=== PATIENT | female | born 1935 | race Caucasian/White ===

== ENCOUNTER 2018-01-17 15:05 | Inpatient (IN) | payer MEDICARE ==
[~2018-01-17] VITALS: Ht 167.6 cm; Wt 52.6 kg
--- NOTE | 2018-01-17 15:08 | NUR ---
BIB FAMILY C/O DIZZINESS "ROOM IS SPINNING", DENIES CP. PATIENT AT BEDSIDE WITH FAMILY. VSS. PER PATIENT, SHE FEELS BETTER NOW, "NOT DIZZY ANYMORE". KEPT PATIENT SAFE AND COMFORTABLE. WAITING MD FOR JC
[2018-01-17] MEDS ORDERED: IV NS 0.9% 1,000 ML BAG IV ONE (15:30)
[2018-01-17] MEDS: ONDANSETRON HCL/PF 4 MG/2 ML VIAL IVP ONE ×2 (15:30→16:27)
--- NOTE | 2018-01-17 15:45 | NUR ---
LEFT AC GAUGE 20, INTACT AND PATENT
[2018-01-17 15:49] LABS: BASOPHILS # (AUTO) 0.1 /CMM (0.0-0.2); BASOPHILS % (AUTO) 1.5 % (0.0-2.0); EOSINOPHILS % (AUTO) 0.1 % (0.0-6.0); HEMATOCRIT 40 % (33-45); HEMOGLOBIN 13.2 g/dL (11.5-14.8); LYMPHOCYTES # (AUTO) 0.5 /CMM (0.8-4.8); LYMPHOCYTES % (AUTO) 9.1 % (20.0-44.0); MEAN CORPUSCULAR HEMOGLOBIN 28 PG (26.0-33.0); MEAN CORPUSCULAR HGB CONC 33 g/dl (31.0-36.0); MEAN CORPUSCULAR VOLUME 87 fL (82-100); MONOCYTES # (AUTO) 0.1 /CMM (0.1-1.30); MONOCYTES % (AUTO) 1.9 % (2.0-12.0); NEUTROPHILS % (AUTO) 87.4 % (43.0-81.0); PLATELET COUNT (AUTO) 233 /CMM (150-450); RDW COEFFICIENT OF VARIATION 13.4 (11.5-15.0); RED BLOOD CELL COUNT(AUTO) 4.64 MIL/uL (4.0-5.2); WHITE BLOOD COUNT (AUTO) 5.7 K/uL (4.3-11.0)
--- NOTE | 2018-01-17 15:55 | NUR ---
refused zofran, explained risks and benefits x3 but still refused. made aware. new orders noted and will carry out
--- NOTE | 2018-01-17 16:05 | NUR ---
PT TAKEN TO CT.
[2018-01-17 16:13] LABS: CALCIUM, SERUM 8.9 mg/dL (8.5-10.1); CARBON DIOXIDE 25 mmol/L (21-32); CHLORIDE 103 mmol/L (98-107); GLUCOSE 140 mg/dL (74-106); POTASSIUM 3.9 mmol/L (3.5-5.1); SODIUM SERUM 137 mmol/L (136-145); UREA NITROGEN, BLOOD 16 mg/dL (7-18)
[2018-01-17] MEDS ORDERED: ONDANSETRON HCL/PF 4 MG/2 ML VIAL ONE (16:15)
[2018-01-17 16:19] LABS: ALANINE AMINOTRANSFERASE 20 U/L (12-78); ALBUMIN 3.6 g/dL (3.4-5.0); ALKALINE PHOSPHATASE 63 U/L (46-116); ASPARTATE AMINOTRANSFERASE 24 U/L (15-37); BILIRUBIN,DIRECT 0.1 mg/dL (0.0-0.2); BILIRUBIN,TOTAL 0.6 mg/dL (0.2-1.0); LIPASE 144 U/L (73-393); TOTAL PROTEIN, SERUM 6.8 g/dL (6.4-8.2)
[2018-01-17 16:21] LABS: TROPONIN I < 0.017 ng/mL (0.00-0.056)
--- NOTE | 2018-01-17 16:40 | NUR ---
urine sample collected, brought to lab
[2018-01-17] MEDS ORDERED: MECLIZINE HCL 12.5 MG TABLET ONE (16:46)
[2018-01-17 16:54] LABS: APPEARANCE,URINE CLEAR (CLEAR); BILIRUBIN,URINE NEGATIVE (NEGATIVE); BLOOD, URINE TRACE Ery/uL (NEGATIVE); COLOR,URINE YELLOW (YELLOW); KETONES,URINE NEGATIVE (NEGATIVE); LEUKOCYTE ESTERASE ,URINE NEGATIVE (NEGATIVE); NITRITE, URINE NEGATIVE (NEGATIVE); PH,URINE 8.5 (5.0-8.0); PROTEIN,URINE NEGATIVE (NEGATIVE); UGLUCOSE NEGATIVE (NEGATIVE); UROBILINOGEN,URINE 0.2 EU/dL (0.2)
[2018-01-17] MEDS ORDERED: MECLIZINE HCL 12.5 MG TABLET PO ONE (17:00)
[2018-01-17 17:01] LABS: BACTERIA,URINE Rare /HPF (None Seen); RBC,URINE 0-2 /HPF (0-2); SQUAMOUS EPITHELIAL CELL,UR 0-2 /HPF (None Seen); URINE AMORPHOUS PHOSPHATES Few /HPF (None Seen); WBC,URINE 0-2 /HPF (0-3)
--- NOTE | 2018-01-17 17:49 | NUR ---
CALLED [employer] INSTRUMENT REPAIR TECHNICIAN WAS PAGED.
[2018-01-17] MEDS ORDERED: IV NS 0.9% 1,000 ML IV PRN (18:12)
--- NOTE | 2018-01-17 18:13 | NUR ---
TEXTED DR. HOUSE FOR MRI APPROVAL.
--- NOTE | 2018-01-17 18:18 | NUR ---
CALLED CHACHA MILNER FOR REPORT
--- NOTE | 2018-01-17 18:19 | NUR ---
DR. HOUSE TEXTED BACK, ON HOLD FOR NOW HE WILL LET US KNOW.
[2018-01-17] MEDS ORDERED: MAG HYDROX/AL HYDROX/SIMETH 30 ML UDC PO PRN ×2 (18:30→18:45)
[2018-01-17] MEDS ORDERED: Z GUARD REMEDY 2 OZ OINT TP PRN ×2 (18:30→18:45)
[2018-01-17] MEDS ORDERED: ZOLPIDEM TARTRATE 5 MG TABLET PO PRN ×2 (18:30→18:45)
[2018-01-17] MEDS ORDERED: ONDANSETRON HCL/PF 4 MG/2 ML VIAL IVP PRN ×2 (18:30→18:45)
[2018-01-17] MEDS ORDERED: MAGNESIUM HYDROXIDE 30 ML UDC PO PRN ×2 (18:30→18:45)
[2018-01-17] MEDS ORDERED: ENOXAPARIN SODIUM 40 MG/0.4 ML DISP.SYRIN SQ SCH ×2 (18:30→18:45)
[2018-01-17] MEDS ORDERED: HYDROCODONE/APAP 5/325MG 1 EACH TABLET PO PRN ×2 (18:30→18:45)
[2018-01-17] MEDS ORDERED: ACETAMINOPHEN 325 MG TABLET PO PRN ×2 (18:30→18:45)
[2018-01-17] MEDS: IV NS 0.9% 1,000 ML IV PRN (18:54)
[2018-01-17 19:05] VITALS: BP 140/75
--- NOTE | 2018-01-17 19:11 | NUR ---
FOAM CASTER NOTES Patient in bed, with family member at bedside. No complaint of pain or discomfort. IV hydration started, blood thinner administered. Endorsed to next shift RN to continue care. Vital signs checked and recorded.
[2018-01-17 20:00] VITALS: BP 124/76
[2018-01-18] VITALS: BP 101/63
[2018-01-18 04:00] VITALS: BP 96/54
--- NOTE | 2018-01-18 06:35 | NUR ---
RUBBER THREAD SPOOLER NOTES AWAKE & RESPONSIVE. NOT IN ANY DISTRESS. NO SOB NOTED. DENIES ANY PAIN OR DIZZINESS AT THIS TIME. ON TELE SB @ 47 WITH IVF INFUSING WELL. MONITORED ACCORDINGLY. CALL LIGHT WITHIN REACH. BED IN LOWEST POSITION. SR UP X 3 FOR SAFETY WITH BED ALARM ON. WILL ENDORSE TO NEXT SHIFT.
[2018-01-18 08:00] VITALS: BP 149/84
--- NOTE | 2018-01-18 08:00 | NUR ---
Tele/RN - AM Assessment Patient awake, A/O x 4, denies chest pain, no c/o dizziness, and no evidence of resp distress noted. Tele reads SR. IVF NS @ 75 ml/hr infusing well on the LAC with no s/s of infiltration. Skin is intact. Patient is ambulatory with assist. All needs attended and met. Fall precautions maintained. Call light in reach at all times. Patient instructed to always call for assistance. Will continue with current plan of care.
--- NOTE | 2018-01-18 09:21 | NUR ---
CX MRI PER DR. HOUSE.
[2018-01-18] MEDS: IV NS 0.9% 1,000 ML IV PRN (11:20)
[2018-01-18] MEDS ORDERED: MECL-102 PO (13:43)
--- NOTE | 2018-01-18 18:20 | NUR ---
M/S RN - Discharge Patient discharged home in stable condition, cleared by neurologist. Reviewed discharge instructions with patient and son Hernná both verbalized full understanding of all teachings. Patient made aware that she has an appt with [facility] on 01/21[facility]18 at 12:00 PM. Patient also educated to seek immediate medical attention for worsening symptoms, chest pain, shortness or breath, weakness, fatigue, dizziness, or any other emergent medical concern. All belongings with patient and she denies any missing items. VSS, denies chest pain, no c/o lightheadedness, denies dizziness, not in any form of distress. Patient refused photos to be taken, skin is intact. Patient is ambulatory with steady gait. Discharge papers signed and copy was given per protocol. Prescription for Meclizine with patient. Accompanied to the lobby via wheelchair and transported by private car by son Hernán.
== END 2018-01-18 18:30 | disposition home or self-care (01) | DRG 149 ==
LOC: ER 15:06 → TELE 18:34 → MED 01-18 10:41
DX: H81.10 Benign paroxysmal vertigo, unspecified ear (principal); H81.399 Other peripheral vertigo, unspecified ear; E86.0 Dehydration
CPT/HCPCS: 36415; 70450-TC; 80048-TC; 80076-TC; 81000-TC; 83690-TC; 84484-TC; 85025-TC; 87081-TC; 87086-TC; 93307-TC; A4606; J1650; J2405; J7030; J8597; Z7610

== ENCOUNTER 2020-11-08 11:40 | Emergency (ER) | payer MEDICARE ==
[~2020-11-08] VITALS: Ht 167.6 cm; Wt 54.4 kg
[~2020-11-08 11:40] MED LIST: MECL-159 PO
[2020-11-08] MEDS ORDERED: MAG HYDROX/AL HYDROX/SIMETH 30 ML UDC PO ONE (12:00)
[2020-11-08] MEDS ORDERED: FAMOTIDINE/PF INJ 20 MG/2 ML VIAL IV ONE ×2 (12:00→12:04)
[2020-11-08] MEDS ORDERED: IV NS 0.9% 1,000 ML BAG IV ONE (12:00)
[2020-11-08] MEDS ORDERED: LIDOCAINE VISCOUS 2% UD 15 ML UDC MM ONE (12:00)
[2020-11-08] MEDS ORDERED: DICYCLOMINE HCL INJ 20 MG/2 ML AMPUL IM ONE ×2 (12:00→12:03)
--- NOTE | 2020-11-08 12:00 | NUR ---
BIBFAMILY FROM HOME TO ER BED 7. AAOX4. NOT IN RESP DISTRESS. AMBULATORY. CAME IN FOR R ABDOMINAL CRAMPING RADIATING TO THE EPIGASTRIC AREA. STARTED @ 0200 AFTER SHE SAW THE NEWS OF A COLLAPSED BUILDING IN [place]. PT IS NOTED ANXIOUS AND WORRIED. MD WAS AT THE BEDSIDE FOR EVAL. ORDERS RECEIVED, NOTED AND CARRIED OUT.
[2020-11-08] MEDS ORDERED: LIDOCAINE VISCOUS 2% UD 15 ML UDC ONE (12:03)
[2020-11-08] MEDS ORDERED: MAG HYDROX/AL HYDROX/SIMETH 30 ML UDC ONE (12:04)
--- NOTE | 2020-11-08 12:20 | NUR ---
PT WOULD LIKE TO TAKE THE MEDICATIONS ONCE ALL THE TEST RESULTS ARE BACK.
--- NOTE | 2020-11-08 12:27 | NUR ---
PT TO CT
[2020-11-08 12:29] LABS: BASOPHILS % (AUTO) 1.1 % (0.0-2.0); EOSINOPHILS % (AUTO) 2.2 % (0.0-6.0); HEMATOCRIT 41 % (33-45); HEMOGLOBIN 13.4 g/dL (11.5-14.8); LYMPHOCYTES % (AUTO) 28.9 % (20.0-44.0); MEAN CORPUSCULAR HGB CONC 33 g/dl (31.0-36.0); MEAN CORPUSCULAR VOLUME 90 fL (82-100); MONOCYTES # (AUTO) 0.2 K/uL (0.1-1.30); MONOCYTES % (AUTO) 6.8 % (2.0-12.0); NEUTROPHILS # (AUTO) 2.1 K/uL (1.8-8.9); PLATELET COUNT (AUTO) 179 K/uL (150-450); RED BLOOD CELL COUNT(AUTO) 4.56 MIL/uL (4.0-5.2); WHITE BLOOD COUNT (AUTO) 3.4 K/uL (4.3-11.0)
[2020-11-08 12:38] LABS: CALCIUM, SERUM 9.2 mg/dL (8.5-10.1); CREATININE 1.1 mg/dL (0.6-1.3); POTASSIUM 3.9 mmol/L (3.5-5.1)
[2020-11-08 12:44] LABS: ALBUMIN 3.8 g/dL (3.4-5.0); BILIRUBIN,DIRECT 0.2 mg/dL (0.0-0.2); BILIRUBIN,TOTAL 0.7 mg/dL (0.2-1.0); TOTAL PROTEIN, SERUM 6.9 g/dL (6.4-8.2)
[2020-11-08] MEDS ORDERED: FAMO-131 PO (13:15)
[2020-11-08] MEDS ORDERED: DICY10CA37 PO (13:15)
[2020-11-08 14:09] VITALS: BP 122/66
== END 2020-11-08 14:10 | disposition home or self-care (01) ==
LOC: ER 11:44
DX: R10.84 Generalized abdominal pain (principal); K76.89 Other specified diseases of liver; R91.1 Solitary pulmonary nodule; I70.0 Atherosclerosis of aorta; R10.13 Epigastric pain
CPT/HCPCS: 36415; 74176; 76705; 80048; 80076; 83690; 85025; 96360; 99285; J7030; J0500; J3490

== ENCOUNTER 2024-01-07 15:53 | Emergency (ER) | payer MEDICARE ==
[~2024-01-07] VITALS: Ht 167.6 cm; Wt 50.8 kg
[~2024-01-07 15:53] MED LIST changes: +DICY10CA37 PO; +FAMO-131 PO
[2024-01-07] MEDS ORDERED: ONDANSETRON HCL/PF 4 MG/2 ML VIAL ONE (17:22)
[2024-01-07] MEDS: IV NS 0.9% 1,000 ML BAG IV ONE (17:45)
[2024-01-07 17:48] LABS: BASOPHILS % (AUTO) 0.9 % (0.0-2.0); EOSINOPHILS # (AUTO) 0.1 K/uL (0.0-0.7); EOSINOPHILS % (AUTO) 1.2 % (0.0-6.0); HEMATOCRIT 42 % (33-45); HEMOGLOBIN 13.5 g/dL (11.5-14.8); LYMPHOCYTES # (AUTO) 1.5 K/uL (0.8-4.8); MEAN CORPUSCULAR HEMOGLOBIN 29 PG (26.0-33.0); MEAN CORPUSCULAR HGB CONC 32 g/dl (31.0-36.0); MEAN CORPUSCULAR VOLUME 91 fL (82-100); MONOCYTES # (AUTO) 0.4 K/uL (0.1-1.30); MONOCYTES % (AUTO) 6.6 % (2.0-12.0); NEUTROPHILS # (AUTO) 3.5 K/uL (1.8-8.9); NEUTROPHILS % (AUTO) 63.3 % (43.0-81.0); PLATELET COUNT (AUTO) 197 K/uL (150-450); RED CELL DISTRIBUTION WIDTH 14.1 % (11.5-15.0); WHITE BLOOD COUNT (AUTO) 5.5 K/uL (4.3-11.0)
[2024-01-07 17:55] LABS: CALCIUM, SERUM 9.7 mg/dL (8.5-10.1); CARBON DIOXIDE 30 mmol/L (21-32); CHLORIDE 104 mmol/L (98-107); GLUCOSE 102 mg/dL (74-106); POTASSIUM 4.2 mmol/L (3.5-5.1); SODIUM SERUM 138 mmol/L (136-145); UREA NITROGEN, BLOOD 12 mg/dL (7-18)
[2024-01-07] MEDS ORDERED: IOHEXOL-300 100 ML VIAL IV ONE (17:59)
[2024-01-07] MEDS: ONDANSETRON HCL/PF 4 MG/2 ML VIAL IVP ONE (17:59)
[2024-01-07] MEDS ORDERED: CT SWABBABLE VALVE TRANS SET 1 EA INFUS.SET MC ONE (17:59)
[2024-01-07] MEDS ORDERED: IV NS 0.9% 250 ML IV ONE (17:59)
[2024-01-07 18:07] LABS: ALANINE AMINOTRANSFERASE 20 U/L (12-78); ALBUMIN 3.9 g/dL (3.4-5.0); ALKALINE PHOSPHATASE 83 U/L (46-116); ASPARTATE AMINOTRANSFERASE 24 U/L (15-37); BILIRUBIN,DIRECT 0.1 mg/dL (0.0-0.2); BILIRUBIN,TOTAL 0.5 mg/dL (0.2-1.0); LIPASE 43 U/L (16-77); TOTAL PROTEIN, SERUM 7.1 g/dL (6.4-8.2)
[2024-01-07 20:01] LABS: APPEARANCE,URINE CLEAR (CLEAR); BILIRUBIN,URINE NEGATIVE (NEGATIVE); BLOOD, URINE NEGATIVE Ery/uL (NEGATIVE); COLOR,URINE YELLOW (YELLOW); KETONES,URINE NEGATIVE (NEGATIVE); LEUKOCYTE ESTERASE ,URINE 2+ (NEGATIVE); NITRITE, URINE NEGATIVE (NEGATIVE); PH,URINE 7.5 (5.0-8.0); PROTEIN,URINE NEGATIVE (NEGATIVE); UGLUCOSE NEGATIVE (NEGATIVE); UROBILINOGEN,URINE 0.2 EU/dL (0.2)
[2024-01-07 20:20] LABS: ADD URINE CULTURE YES; BACTERIA,URINE 1+ /HPF (None Seen); RBC,URINE 0-2 /HPF (0-2); SQUAMOUS EPITHELIAL CELL,UR Few /HPF (None Seen); WBC,URINE 21-50 /HPF (0-3)
[2024-01-07] MEDS ORDERED: CEPH500T PO (20:43)
[2024-01-07] MEDS ORDERED: IBUP-1953 PO (20:43)
[2024-01-07] MEDS ORDERED: CEPHALEXIN MONOHYDRATE 500 MG CAPSULE PO ONE (20:48)
[2024-01-07] MEDS: CEPHALEXIN MONOHYDRATE 500 MG CAPSULE PO ONE (20:50)
[2024-01-07 21:05] VITALS: BP 130/84; TEMP 98; O2SAT 96
== END 2024-01-07 21:05 | disposition home or self-care (01) ==
LOC: ER 15:56
DX: N39.0 Urinary tract infection, site not specified (principal); Z90.49 Acquired absence of other specified parts of digestive tract; Z79.899 Other long term (current) drug therapy
CPT/HCPCS: 99285; 74177; 96360; 93005; 85025; 80048; 87086; 83690; 80076; 81001; 36415; J2405; J7030; J7050; Q9967